=== PATIENT | female | born 1965 | race Caucasian/White ===

== ENCOUNTER → 2020-03-18 17:55 | Outpatient (BNVA) | payer OTHER, SELFPAY | PROVIDERS: Family Provider Nurse Practitioner; PCP Family Medicine; Visit Provider Emergency Medicine | DX: S80.01XA Contusion of right knee, initial encounter (principal); X58.XXXA Exposure to other specified factors, initial encounter | CPT/HCPCS: 73560 ==

== ENCOUNTER 2020-04-02 13:38 | Outpatient (CLI) | payer OTHER, SELFPAY ==
--- NOTE | 2020-04-02 14:15 | MR_ITS ---
WS: [id number] MRI RIGHT KNEE HISTORY: M25.461 Effusion, right knee COMPARISON: 03/18/2020 Anterior cruciate ligament: Intact. Posterior cruciate ligament: Intact. Medial collateral ligament: Intact. Posterior lateral corner structures: Intact. Medial menisci: Intact. Normal signal, size and shape. Lateral meniscus: Intact. Normal signal, size and shape. Extensor mechanism: Distal quadriceps tendon is intact. Increased signal in the proximal and distal p atellar tendons. Fluid and soft tissue: Large suprapatellar joint effusion. There is a large amount of soft tissue rubén ma surrounding the knee. No Dowd's cyst. Osseous and articular structures: Patellofemoral compartment: Loss of cartilage along the lateral patellar facet extending over a width of 6 mm Patellofemoral compartment: There is a small amount of marrow edema in the underlying patella. Medial compartment: Very minimal fissuring of the cartilage. Lateral compartment: Minimal fissuring of the cartilage. Proximal tibia: There is a large amount of edema in the proximal tibia. There is a complex fracture l ine predominantly within the lateral proximal tibia with extension anteriorly and posteriorly. Fractu re extends to the tibial tubercle but there is a complex fracture line that extends to the midline wi th involvement of the metaphysis and superiorly to the lateral tibial plateau. Fracture extends to th e base of the lateral tibial spine. There is no depression. Fracture extends approximately 5 cm into the proximal tibia. The entire fracture line is not evident. MR/MR knee RT wo con* [id number] IMPRESSION: 1. Complex, intra-articular, nondisplaced fracture involving the proximal tibi a. Fracture extends over a length of at least 5 cm with involvement of the late ral tibial plateau. No tibial plateau depression. 2. Large joint effusion and soft tissue edema. 3. Mild chondromalacia lateral patellar facet.
== END 2020-04-02 13:39 | disposition home or self-care (01) ==
LOC: RADSHAW 13:41
PROVIDERS: PCP Family Medicine; Visit Provider Orthopaedic Surgery
DX: M25.461 Effusion, right knee (principal); S82.101A Unspecified fracture of upper end of right tibia, initial encounter for closed fracture; X58.XXXA Exposure to other specified factors, initial encounter; R60.9 Edema, unspecified; M22.41 Chondromalacia patellae, right knee
CPT/HCPCS: 73721

== ENCOUNTER → 2020-04-24 09:53 | Outpatient (BNVA) | payer OTHER, SELFPAY | PROVIDERS: PCP Family Medicine; Visit Provider Orthopaedic Surgery | DX: S82.141D Displaced bicondylar fracture of right tibia, subsequent encounter for closed fracture with routine healing (principal); W18.09XD Striking against other object with subsequent fall, subsequent encounter | CPT/HCPCS: 73562 ==

== ENCOUNTER → 2020-05-15 10:24 | Outpatient (BNVA) | payer OTHER, SELFPAY | PROVIDERS: PCP Family Medicine; Visit Provider Orthopaedic Surgery | DX: S82.141A Displaced bicondylar fracture of right tibia, initial encounter for closed fracture (principal); X58.XXXA Exposure to other specified factors, initial encounter | CPT/HCPCS: 73562 ==

== ENCOUNTER 2020-06-19 10:25 | Outpatient (RCR) | payer OTHER, SELFPAY | END 2020-07-11 23:59 | disposition home or self-care (01) | LOC: SPT 10:25 | PROVIDERS: PCP Family Medicine; Referring Provider Orthopaedic Surgery; Visit Provider Orthopaedic Surgery | DX: S82.141D Displaced bicondylar fracture of right tibia, subsequent encounter for closed fracture with routine healing (principal); X58.XXXD Exposure to other specified factors, subsequent encounter | CPT/HCPCS: 97110; 97112; 97161 ==

== ENCOUNTER 2021-02-26 12:05 | Outpatient (CLI) | payer OTHER, SELFPAY ==
--- NOTE | 2021-02-26 12:56 | MM_ITS ---
WS: [id number] BILATERAL SCREENING DIGITAL MAMMOGRAM WITH CAD HISTORY: SCREENING COMPARISON: 05/02/2019 and 12/12/2015 Bilateral CC and MLO views submitted. Computer aided detection analyzed. Breast composition: There are scattered areas of fibroglandular density. No suspicious masses, microc alcifications or architectural distortion. Benign scattered calcifications and breast arterial calcif ications. MM/[place] [id number] IMPRESSION: BI-RADS: 2-Benign FOLLOW UP: 1 Year Follow-up
== END 2021-02-26 12:06 | disposition home or self-care (01) ==
LOC: RADSHAW 12:08
PROVIDERS: PCP Nurse Practitioner; Visit Provider Nurse Practitioner
DX: Z12.31 Encounter for screening mammogram for malignant neoplasm of breast (principal)
CPT/HCPCS: 77067

== ENCOUNTER 2022-04-09 15:45 | Outpatient (CLI) | payer OTHER, SELFPAY ==
--- NOTE | 2022-04-09 15:51 | MM_ITS ---
WS: [id number] BILATERAL SCREENING DIGITAL BREAST TOMOSYNTHESIS MAMMOGRAM WITH CAD HISTORY: SCREENING COMPARISON: 02/26/2021, 05/02/2019 and 12/12/2015 Bilateral CC and MLO views with tomosynthesis and synthetic mammography submitted. Computer aided det ection analyzed. Breast composition: There are scattered areas of fibroglandular density. No suspicious masses, microc alcifications or architectural distortion. Scattered calcifications and asymmetries are stable. No ne w findings. MM/[place] [id number] IMPRESSION: BI-RADS: 2-Benign FOLLOW UP: 1 Year Follow-up
== END 2022-04-09 15:46 | disposition home or self-care (01) ==
PROVIDERS: Visit Provider Nurse Practitioner Family
DX: Z12.31 Encounter for screening mammogram for malignant neoplasm of breast (principal)
CPT/HCPCS: 77063; 77067

== ENCOUNTER 2022-05-30 10:18 | Emergency (ER) | payer OTHER, SELFPAY ==
[2022-05-30 11:00] VITALS: BP 130/76; PULSE 85; RESP 16; TEMP 37; O2SAT 95; BMI 26.2
--- NOTE | 2022-05-30 14:08 | PC.NURSE ---
Called from waiting room with no answer
--- NOTE | 2022-05-30 14:24 | PC.NURSE ---
Called from waiting room with no answer
== END 2022-05-30 14:25 | disposition left against medical advice (07) ==
PROVIDERS: Emergency Provider Family Medicine
DX: Z53.21 Procedure and treatment not carried out due to patient leaving prior to being seen by health care provider (principal)
CPT/HCPCS: 73030

== ENCOUNTER 2022-05-31 17:36 | Emergency (ER) | payer OTHER, SELFPAY ==
[2022-05-31 18:22] VITALS: BP 145/76; PULSE 108; RESP 14; TEMP 36.7; O2SAT 96; BMI 31.8
--- NOTE | 2022-05-31 18:31 | XRR_ITS ---
PROCEDURE INFORMATION: Exam: XR Left Shoulder Exam date and time: 05/31/2022 7:22 PM Age: 57 years old Clinical indication: Pain; Shoulder; Left; Additional info: Shoulder pain TECHNIQUE: Imaging protocol: Radiologic exam of the Left shoulder. Views: 2 or more views. COMPARISON: CR XR shoulder LT min 2V* [id number] 05/30/2022 11:36 AM FINDINGS: Bones/joints: 1.8 cm well demarcated sclerotic lesion at the humeral head/neck interface. No periosteal reaction/bone formation or other aggressive features. Negative for fracture. Soft tissues: Normal. XR/XR shoulder LT min 2V* [id number] IMPRESSION: No acute findings. 1.8 cm sclerotic lesion at the proximal humerus with imaging characteristics most consistent with an enchondroma.
[2022-05-31 18:39] VITALS: BP 145/76; PULSE 108; RESP 14; TEMP 36.7; O2SAT 96
--- NOTE | 2022-05-31 18:51 | W.ED.EXTPRO ---
HPI - Extremity Problem General: Chief complaint: Extremity Injury, Upper Stated complaint: Left shoulder pain Time Seen by Provider: 05/31/22 18:31 History of Present Illness: Patient is a 57-year-old female comes to the ED with left shoulder pain. Symptoms started approximately 3 weeks ago. She denies any injury or trauma to cause pain. She has been to the walk-in clinic at [place] approximately 12 days ago for same complaint and states that they gave her a steroid shot in her left arm and it did not help. She rates her pain currently a 9 out of 10. She describes as a deep aching pain in her left shoulder that radiates up into her neck. Associated symptoms: Deny chest pain, fever(s) or rash Review of Systems Const: Denies: fever(s), chills or fatigue Eyes: Denies: change in vision or eye discomfort ENMT: Denies: throat pain, odynophagia, nasal discharge or nasal congestion Card: Denies: chest pain, palpitations, edema, swelling of feet/ankles, dyspnea on exertion or orthopnea Resp: Denies: dyspnea, productive cough or non-productive cough GI: Denies: abdominal pain, nausea, vomiting, diarrhea, constipation or hematochezia : Denies: flank pain, dysuria or hematuria Musc: Reports: extremity pain (Left shoulder pain); Denies: neck pain, back pain or extremity swelling Skin/Breast: Denies: rash or new lesions Neuro: Denies: headache(s), numbness in extremities or weakness in extremities PFS ED PFSH: Medical History Contusion of knee, right HTN (hypertension) Seasonal allergies Type 2 diabetes mellitus Surgical History S/P appendectomy S/P cholecystectomy Family History Other CAD (coronary artery disease) Diabetes Social History Smoking and tobacco status: never smoked Second hand smoke exposure: No Alcohol intake: never Desire information about alcohol rehabilitation?: No Desire information about substance/drug rehabilitation?: No History of recent travel: No Current gender identity: Female Physical Exam Const: COMMON NORMALS: no acute distress, patient oriented x3 and alert GENERAL APPEARANCE: cooperative HENMT: COMMON NORMALS: normocephalic HEAD & SCALP: normocephalic MOUTH: Normal oral and palatal mucosa present THROAT: posterior oropharynx normal and uvula midline Neck/C-Spine: COMMON NORMALS: supple GENERAL: Yes normal visual inspection Resp: COMMON NORMALS: normal respiratory effort, No retractions, No use of accessory muscles and clear to auscultation bilaterally AUSCULTATION: clear to auscultation bilaterally Cardio: COMMON NORMALS: regular rate, regular rhythm, S1 normal heart sound present, S2 normal heart sound present, No gallops present (Cardio), No clicks present (Cardio), No murmurs present (Cardio) and Peripheral pulses 2+ throughout RATE: regular rate RHYTHM: regular rhythm HEART SOUNDS: S1 normal heart sound present and S2 normal heart sound present PERIPHERAL PULSES: Peripheral pulses 2+ throughout GI: COMMON NORMALS: Normal to inspection, nondistended, normoactive bowel sounds present, Soft to palpation, non-tender and no masses PALPATION: Yes Soft to palpation : COMMON NORMALS: Yes no CVA tenderness BLADDER/KIDNEY EXAM: Yes no CVA tenderness Back/Pelvis: COMMON NORMALS: no CVA tenderness Extremity: COMMON NORMALS: normal to inspection and full ROM Neuro: COMMON NORMALS: patient oriented x3 SENSORIUM/ORIENTATION: Yes alert GAIT: Yes Normal gait present Skin: GENERAL SKIN EXAM: dry skin Course Vital Signs: Vital signs: Vital Signs Temperature 98.0 F 05/31/22 18:39 Pulse Rate 108 H 05/31/22 18:39 Respiratory Rate 14 05/31/22 18:39 Blood Pressure 145/76 05/31/22 18:39 Pulse Oximetry 96 05/31/22 18:39 Oxygen Delivery Me thod 05/31/22 18:39 MDM - Extremity (Nontraumatic) Medical Decision Making Patient is a 57-year-old female comes to the ED with left shoulder pain. Symptoms started approximately 3 weeks ago. She denies any injury or trauma to cause pain. X-ray of left shoulder showed a 1.8 cm sclerotic lesion at the proximal humerus which is consistent with an enchondroma. Patient was stable for discharge home and diagnosed with left shoulder pain. I placed order with case management for patient be referred to Ortho for follow-up. She was discharged home with a prescription for hydrocodone with pain. Return to ED precautions given. Patient understood agree with plan. Lab Data Radiology Impressions Shoulder X-Ray 05/31/22 18:31 IMPRESSION: No acute findings. 1.8 cm sclerotic lesion at the proximal humerus with imaging characteristics most consistent with an enchondroma. Discharge Plan Discharge Patient Disposition: Home Clinical Impression: Pain in left shoulder Qualifiers: Chronicity: acute Qualified Code(s): M25.512 - Pain in left shoulder Condition: Stable Prescriptions: No Action Chlipzlecrt-Xzotfwexazh-HE II [id number] mg tablet 2 tab PO DAILY Januvia 50 mg tablet 50 mg PO DAILY lisinopril 5 mg tablet 5 mg PO DAILY metformin 500 mg tablet 875 mg PO BID meclizine 25 mg tablet 25 mg PO BID PRN (Reason: dizziness) Qty: 30 0RF Farxiga 5 mg tablet 5 mg PO DAILY prednisone 20 mg tablet 60 mg PO DAILY 5 Days Qty: 15 0RF ibuprofen 600 mg tablet 600 mg PO Q8H PRN (Reason: pain) Qty: 30 0RF baclofen 5 mg tablet 5 mg PO TID PRN (Reason: muscle pain) Qty: 20 0RF Discharge Orders: Discharge ED (Routine); Ordered 05/31/22 Ordered By: Sourav Cornelius Referrals: Bernarda Temple FNP [Primary Care Provider] - Discharge Diet: Regular Discharge Activity: Increase activity as tolerated Activity Restrictions/Additional Instructions: Follow-up with medical provider as directed. Case management should be contacted in the next several days set up an appointment with Ortho for follow-up. Take medications as prescribed. Return to the ER or your medical provider if condition worsens. Please read and understand discharge instructions. Thank you for choosing [facility] for your healthcare needs today. Please realize this is an emergency room and that we are providing you with a medical screening exam and this may not be complete and all inclusive of all the testing and or work up that you may need to determine your ailment or severity of your illness. It is very important that you follow up as instructed or that you return to the Emergency Department should you have concerns or if your condition changes or worsens in any way. Coding Level of Care Code ED Home Energy Consultant for Radha Thakur Exam Comprehensive
[2022-05-31] MEDS: morphine 4 mg/mL SDV 1 mL IM (19:00)
[2022-05-31] MEDS: HYDROcodone-acetaminophen 7.5-325 mg Tablet 2 TAB PO (19:49)
--- NOTE | 2022-06-03 10:24 | DCPLANNER ---
Addendum entered by Debbi Doss 06/27/22 08:48: Patient had a follow up appointment scheduled with ortho - patient did attend appointment Addendum entered by Debbi Doss 06/06/22 14:12: Patient has a follow up appointment scheduled for Thursday, June 11, 2022 at 9:[address] Plummer at ortho. Clinic will call patient with appointment information. Original Note: state manager had message to schedule a follow up appointment for patient with ortho. state manager sent patients information to the front office staff at ortho. Patients information will be printed and reviewed. Clinic will call patient with appointment information.
== END 2022-05-31 19:51 | disposition home or self-care (01) ==
PROVIDERS: Emergency Provider Physician Assistant; PCP Nurse Practitioner Family
DX: M25.512 Pain in left shoulder (principal); Z79.84 Long term (current) use of oral hypoglycemic drugs; I10 Essential (primary) hypertension; E11.9 Type 2 diabetes mellitus without complications
CPT/HCPCS: 73030; 96372; 99284; J2270

== ENCOUNTER 2022-06-25 07:37 | Outpatient (CLI) | payer OTHER, SELFPAY ==
--- NOTE | 2022-06-25 12:58 | XR_ITS ---
WS: [id number] XR cervical spine 4-5V [id number] REASON FOR EXAM: CERVICALGIA FINDINGS: Straightening of the normal lordosis of the cervical spine. Normal odontoid. No focal cervical vertebral body abnormality. Moderate narrowing of the disc space C4-C5, C6-C7, and C7-T1. Moderate to large anterior osteophytes are seen from C4 to T1. Moderate uncinate osteophytes C4-T1. Moderate bilateral neural foraminal bony encroachment C4-T1. No significant listhesis. XR/XR cervical spine 4-5V [id number] IMPRESSION: Multilevel degenerative spondylosis as above.
== END 2022-06-25 07:38 | disposition home or self-care (01) ==
PROVIDERS: PCP Nurse Practitioner Family; Visit Provider Nurse Practitioner Family
DX: M47.812 Spondylosis without myelopathy or radiculopathy, cervical region (principal)
CPT/HCPCS: 72050

== ENCOUNTER 2023-04-23 13:37 | Outpatient (CLI) | payer OTHER, SELFPAY ==
--- NOTE | 2023-04-23 13:49 | MM_ITS ---
WS: [id number] Bilateral screening 3D tomosynthesis digital mammogram, 04/23/2023 Clinical Data: SCREENING Comparison: 04/09/2022, 02/26/2021, 05/02/2019, 12/12/2015, 11/24/2013, 09/13/2012, 02/13/2011, 08/24/2007. Findings: The breast parenchymal pattern shows fibroglandular tissue. No spiculated masses or clustered calcifi cations are seen. There are no secondary signs of carcinoma. Scattered ductal and vascular calcificat ions are present. MM/[place] [id number] Impression: 1. Negative bilateral mammogram unchanged. 2. Recommend annual screening mammograms. BIRADS: 1-Negative FOLLOW UP: 1 Year Follow-up The CAD plan checker was used.
== END 2023-04-23 13:38 | disposition home or self-care (01) ==
LOC: MOBLMAM 13:40
PROVIDERS: PCP Nurse Practitioner Family; Visit Provider Nurse Practitioner Family
DX: Z12.31 Encounter for screening mammogram for malignant neoplasm of breast (principal)
CPT/HCPCS: 77063; 77067

== ENCOUNTER → 2024-06-28 07:29 | Outpatient (BNVA) | payer OTHER, SELFPAY | PROVIDERS: PCP Nurse Practitioner Family; Visit Provider Orthopaedic Surgery | DX: M54.50 Low back pain, unspecified (principal); G89.29 Other chronic pain | CPT/HCPCS: 72110 ==

== ENCOUNTER 2024-11-08 20:14 | Inpatient (IN) | payer OTHER, SELFPAY ==
[2024-11-08] VITALS (7 sets, daily range): BP systolic 136–176; BP diastolic 70–95; PULSE 86–109; RESP 14–21; TEMP 36.8; O2SAT 97–100
--- NOTE | 2024-11-08 20:17 | ECG_ITS ---
[facility] [employer] [address] Test Date: 2024-11-08 Pat Name: Maia Rhodes Department: Room: Gender: Female Avionic Technician: : 1965 Requested By: Robert Vega Order Number: [id number] Sandy MD: Vicente Cortez M.D. Measurements Intervals [place] Rate: 113 P: 64 VT: 116 QRS: 32 QRSD: 91 T: 44 QT: 333 QTc: 457 Interpretive Statements SINUS TACHYCARDIA WITH SHORT VT INTERVAL LOW QRS VOLTAGE IN PRECORDIAL LEADS [QRS DEFLECTION < 1.0 mV IN CHEST LEADS] POSSIBLE ANTERIOR MYOCARDIAL INFARCTION , PROBABLY OLD [30 ms Q WAVE IN V3/V4, OR R < 0.2 mV IN V4] No previous ECG available for comparison Electronically Signed On 11-10-2024 11:17:25 BATCH ROOM TECHNICIAN by Vicente Cortez M.D. [email or web address]
--- NOTE | 2024-11-08 20:28 | XRR_ITS ---
PROCEDURE INFORMATION: Exam: XR Chest Exam date and time: 11/08/2024 8:34 PM Age: 59 years old Clinical indication: Pain; Chest pressure; Additional info: Cp TECHNIQUE: Imaging protocol: Radiologic exam of the chest. Views: 1 view. COMPARISON: CR XR cervical spine 4-5V [id number] 06/25/2022 1:03 PM FINDINGS: Lungs: No focal consolidation or other acute appearing pulmonary opacity. Pleural spaces: No pleural effusion or pneumothorax noted. Heart/Mediastinum: There is no cardiomegaly. Bones/joints: No acute osseous abnormality. XR/XR chest 1V portable [id number] IMPRESSION: No acute findings.
--- NOTE | 2024-11-08 21:02 | W.ED.CHESTPA ---
HPI - Chest Pain General: Chief Complaint: Chest Pain Stated Complaint: Chest Pain\Chest Pressure Time Seen by Provider: 11/08/24 20:57 History of Present Illness: Patient presents to the ER with intermittent pain between her shoulder blades that radiates to anterior to her chest to her bilateral arms up into her neck and ends up giving her headache. Patient says her blood pressure has been up and down normally is very well-controlled it has been all the way up to 186/103 this is when her headache is the worst. Patient has not missed any medicine or had any medicine changes. Patient denies any history of coronary artery disease or heart problems. Patient is a diabetic. Patient states this been going on for 3 to 4 days off and on and was better today at work but when she went home and started getting worse so then she got concerned and wanted to be coming to be checked out. Related Data Home Medications Medication Instructions Recorded Confirmed lisinopril 5 mg tablet 5 mg PO DAILY 02/12/20 09/27/24 sitagliptin phosphate 50 mg tablet 50 mg PO DAILY 02/12/20 09/27/24 (Januvia) dapagliflozin propanediol 5 mg 5 mg PO DAILY 11/05/20 09/27/24 tablet (Farxiga) metformin 1,000 mg tablet 1,000 mg PO BID 09/27/24 09/27/24 Previous Rx's Medication Instructions Recorded ibuprofen 600 mg tablet 600 mg PO Q8H PRN pain #30 tabs 05/19/22 fluticasone propionate 50 1 spray intranasal DAILY PRN 10/15/22 mcg/actuation nasal allergy symptoms #16 grams spray,suspension tizanidine 2 mg tablet 2 mg PO BID PRN muscle spasticity 10/11/23 #20 tabs cephalexin 500 mg capsule 500 mg PO TID 7 days #21 caps 09/27/24 Allergies Allergy/AdvReac Type Severity Reaction Status Date / Time No Known Allergies Allergy Verified 11/08/24 20:25 Review of Systems General: Reports: 10 or more systems reviewed and unremarkable except in HPI and below PFSH ED PFSH: Medical History Type 2 diabetes mellitus Seasonal allergies HTN (hypertension) Contusion of knee, right Surgical History S/P cholecystectomy S/P appendectomy Family History Other CAD (coronary artery disease) Diabetes Social History Smoking and tobacco/nicotine status: tobacco/nicotine user, details unknown Second hand smoke exposure: No Alcohol intake: never Substance/Drug Use: never Current gender identity: Female Physical Exam Const: COMMON NORMALS: no acute distress, average body habitus, patient oriented x3, no limitations, healthy appearing, alert and well nourished HENMT: COMMON NORMALS: normocephalic, atraumatic, hearing grossly normal bilaterally, external ears normal, Normal external nose present and moist oral mucous membranes HEAD & SCALP: normocephalic and atraumatic NOSE: Normal external nose present EXTERNAL EAR: Yes external ears normal Neck/C-Spine: COMMON NORMALS: no JVD Chest: COMMONS NORMALS: normal inspection of the chest and normal palpation of entire chest wall Resp: COMMON NORMALS: normal respiratory effort, No retractions, No use of accessory muscles and clear to auscultation bilaterally AUSCULTATION: clear to auscultation bilaterally Cardio: COMMON NORMALS: no JVD, regular rate, regular rhythm, S1 normal heart sound present, S2 normal heart sound present, No gallops present (Cardio), No clicks present (Cardio), No murmurs present (Cardio) and No rub (Cardio) RATE: regular rate RHYTHM: regular rhythm HEART SOUNDS: S1 normal heart sound present and S2 normal heart sound present GI: COMMON NORMALS: Normal to inspection, nondistended, normoactive bowel sounds present, Soft to palpation, non-tender, No hepatosplenomegaly present and no masses PALPATION: Yes Soft to palpation and Yes No hepatosplenomegaly present Neuro: COMMON NORMALS: patient oriented x3 SENSORIUM/ORIENTATION: Yes alert Course Vital Signs: Vital signs: Vital Signs Temperature 98.2 F 11/08/24 20:21 Pulse Rate 86 11/08/24 22:30 Respiratory Rate 16 11/08/24 22:30 Blood Pressure 136/70 11/08/24 22:30 Pulse Oximetry 98 11/08/24 22:30 Oxygen Delivery Me thod Room Air 11/08/24 22:00 MDM - Chest Pain Medical Decision Making Lab work revealed an elevated delta troponin. First troponin was 16, second troponin was 84 with a delta of approximately 64, EKG did show some changes with some inverted T waves in V1 V2. Patient said her pain was fully improved but still there little bit. Patient said her headache is gone. We discussed these results with the patient. We discussed these results with Dr. Stacy. We placed patient in observation for elevated troponin we will start patient on Lovenox, Medical Records I reviewed the patient's medical records. Lab Data I reviewed the patient's lab results. 11/08/24 21:09 11/08/24 21:09 Radiology Impressions Chest X-Ray 11/08/24 20: IMPRESSION: No acute findings. Laboratory Results WBC 12.11 10^3/uL (3.29-11.43) H 11/08/24 21:09 RBC 4.72 10^6/uL (3.85-5.65) 11/08/24 21:09 Hgb 14.40 g/dL (11.27-16.99) 11/08/24 21:09 Hct 41.9 % (36-47) 11/08/24 21:09 MCV 88.8 fl (85-98) 11/08/24 21:09 MCH 30.5 pg (27-33) 11/08/24 21: MCHC 34.4 g/dL (30-55) 11/08/24 21:09 RDW 12.0 % (12.1-15.1) L 11/08/24 21:09 Plt Count 354 10^3/cmm (157-399) 11/08/24 21:09 MPV 8.6 fL (7.4-10.4) 11/08/24 21:09 Neut % (Auto) 56.9 % 11/08/24 21:09 Lymph % (Auto) 30.2 % 11/08/24 21:09 [place] % (Auto) 7.4 % 11/08/24 21:09 Eos % (Auto) 4.5 % 11/08/24 21:09 Baso % (Auto) 0.8 % 11/08/24 21:09 Neut # (Auto) 6.88 10^3/uL (1.8-7.7) 11/08/24 21:09 Lymph # (Auto) 3.7 10^3/uL (0.8-4.8) 11/08/24 21:09 [place] # (Auto) 0.9 10^3/uL (0.2-0.9) 11/08/24 21:09 Eos # (Auto) 0.5 10^3/uL (0.0-0.8) 11/08/24 21:09 Baso # (Auto) 0.1 10^3/uL (0.0-0.1) 11/08/24 21:09 Nucleated RBC % (auto) 0 % 11/08/24 21:09 Nucleated RBCs # 0.0 /100WBC 11/08/24 21:09 Sodium 135 mmol/L (136-145) L 11/08/24 21:09 Potassium 4.3 mmol/L (3.5-5.1) 11/08/24 21:09 Chloride 98 mmol/L (98-107) 11/08/24 21:09 Carbon Dioxide 23 mmol/L (22-29) 11/08/24 21:09 Anion Gap 18.3 (5-19) 11/08/24 21:09 BUN 9 mg/dL (8-23) 11/08/24 21:09 Creatinine 0.5 mg/dL (0.5-0.9) 11/08/24 21:09 GFR Calculation 125.4 mL/min (90-130) 11/08/24 21:09 Glucose 332 mg/dL (65-115) H 11/08/24 21:09 Calculated Osmolality 292 mOsm/kg (285-295) 11/08/24 21:09 Calcium 9.4 mg/dL (8.5-10.5) 11/08/24 21:09 Total Bilirubin 0.4 mg/dL (0.15-1.2) 11/08/24 21:09 AST 20 U/L (0-32) 11/08/24 21:09 ALT 22 U/L (0-33) 11/08/24 21:09 Alkaline Phosphatase 134 U/L (35-105) H 11/08/24 21:09 Troponin T Baseline 16 ng/L (0-10) H 11/08/24 21:09 Troponin T 120 Minute 80.51 ng/L (0-10) H 11/08/24 22:50 Delta Troponin T 64.51 ABS# (0-10) H* 11/08/24 22:50 Total Protein 7.1 g/dL (6.6-8.7) 11/08/24 21:09 Albumin 4.3 g/dL (3.5-5.2) 11/08/24 21:09 Globulin 2.8 g/dL (1.3-4.6) 11/08/24 21:09 Lipase 40 U/L (13-60) 11/08/24 21:09 All radiology interpretation(s) finalized by discharge Discharge Plan Discharge Patient Disposition: Placed in Observation Clinical Impression: Non-ST elevation KS (NSTEMI) Coding Level of Care Code ED Building Cleaner for Radha Thakur
[2024-11-08 21:23] LABS: Basophils # 0.1 10^3/uL (0.0-0.1); Basophils % 0.8 %; Eosinophils # 0.5 10^3/uL (0.0-0.8); Eosinophils % 4.5 %; Hematocrit 41.9 % (36-47); Lymphocytes # 3.7 10^3/uL (0.8-4.8); Lymphocytes % 30.2 %; Mean Corpuscular HGB Conc 34.4 g/dL (30-55); Mean Corpuscular Hemoglobin 30.5 pg (27-33); Mean Corpuscular Volume 88.8 fl (85-98); Mean Platelet Volume 8.6 fL (7.4-10.4); Monocytes # 0.9 10^3/uL (0.2-0.9); Monocytes % 7.4 %; Neutrophils # 6.88 10^3/uL (1.8-7.7); Neutrophils % 56.9 %; Nucleated Red Blood Cells % 0 %; Platelet Count 354 10^3/cmm (157-399); Red Blood Count 4.72 10^6/uL (3.85-5.65); White Blood Count 12.11 10^3/uL (3.29-11.43)
[2024-11-08 21:38] LABS: Alanine Aminotransferase 22 U/L (0-33); Albumin Level 4.3 g/dL (3.5-5.2); Alkaline Phosphatase 134 U/L (35-105); Anion Gap 18.3 (5-19); Aspartate Amino Transferase 20 U/L (0-32); Blood Urea Nitrogen 9 mg/dL (8-23); Calcium 9.4 mg/dL (8.5-10.5); Carbon Dioxide 23 mmol/L (22-29); Chloride 98 mmol/L (98-107); Globulin 2.8 g/dL (1.3-4.6); Glomerular Filtration Rate 125.4 mL/min (90-130); Glucose 332 mg/dL (65-115); Lipase 40 U/L (13-60); Osmolality Calculated 292 mOsm/kg (285-295); Potassium 4.3 mmol/L (3.5-5.1); Sodium 135 mmol/L (136-145); Total Bilirubin 0.4 mg/dL (0.15-1.2); Total Protein 7.1 g/dL (6.6-8.7)
[2024-11-08 21:39] LABS: Troponin(5th) Baseline 16 ng/L (0-10)
--- NOTE | 2024-11-08 22:28 | ECG_ITS ---
[facility]: [facility] Pat Name: Maia Rhodes Department: Room: Gender: Female Hand Candle Dipper: : 1965 Requested By: Linda Yost Order Number: [id number] Vika MD: Vicente Cortez M.D. Measurements Intervals [place] Rate: 87 P: 45 MI: 138 QRS: -1 QRSD: 93 T: 78 QT: 366 QTc: 441 Interpretive Statements SINUS RHYTHM POSSIBLE ANTERIOR MYOCARDIAL INFARCTION , OF INDETERMINATE AGE [30 ms Q WAVE IN V3/V4, OR R < 0.2 mV IN V4] Compared to ECG 11/08/2024 20:17:31 Sinus tachycardia no longer present Short MI interval no longer present Myocardial infarct finding still present Electronically Signed On 11-12-2024 13:44:56 GENERAL HARDWARE SALESPERSON by Vicente Cortez M.D. [email or web address]
[2024-11-08 23:11] LABS: Troponin 5 2HR 80.51 ng/L (0-10)
[2024-11-08 23:23] LABS: Troponin 5 2HR Delta 64.51 ABS# (0-10)
[2024-11-08] MEDS: aspirin 81 mg Chew Tablet 324 MG PO (23:42)
--- NOTE | 2024-11-08 23:51 | P.HP_ITS ---
Providers/Chief Complaint 2 Primary Care Provider: Bernarda Temple, SHADIA Chief Complaint: Chest Pain\Chest Pressure History of Present Illness Maia Rhodes is a 59 year old female with history of diabetes, hypertension, takes lisinopril presented to the hospital with intermittent headache, chest discomfort and facial flushing. Patient is stating that since last Thursday he has been feeling under the weather, has been noticing fluctuation of blood pressure highest 182/103mmhg, she maintained a blood pressure log, she kept taking lisinopril fall milligrams daily. She does not smoke or drink alcohol. 11/08 she started experiencing chest discomfort with high blood pressure and headache after her supper this time she decided to come to the hospital for further evaluation. In the ER her second hour troponin went up significantly, EKG showing T wave inversion V1 V2 which were not present on baseline at the time of my evaluation she is not complaining active chest pain or shortness of breath she is reading a book. She has been started on ACS protocol for non-STEMI. Patient is stating that her chest discomfort started around 6 PM and lasted for about 4 hours, it was rating towards her back and between her shoulder blades, she did not experience any nausea or vomiting but experienced facial flushing. Patient is endorsing history of [place] in her mother in 60s. Patient has received therapeutic loading dose of aspirin. 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, has been active, not endorsing sedentary lifestyle Review of Systems 2 Const: Denies: fever(s) Eyes: Denies: change in vision ENMT: Denies: throat pain Card: Reports: chest pain Resp: Denies: dyspnea GI: Denies: abdominal pain Medications/Allergies Home Medications Medication Instructions Recorded Confirmed Last Taken Type lisinopril 5 mg tablet 5 mg PO DAILY 02/12/20 09/27/24 Unknown History sitagliptin phosphate 50 mg tablet 50 mg PO DAILY 02/12/20 09/27/24 Unknown History (Jeremiah) dapagliflozin propanediol 5 mg 5 mg PO DAILY 11/05/20 09/27/24 Unknown History tablet (Farxiga) ibuprofen 600 mg tablet 600 mg PO Q8H PRN pain #30 tabs 05/19/22 09/27/24 Unknown Rx fluticasone propionate 50 1 spray intranasal DAILY PRN 10/15/22 09/27/24 Unknown Rx mcg/actuation nasal allergy symptoms #16 grams spray,suspension tizanidine 2 mg tablet 2 mg PO BID PRN muscle spasticity 10/11/23 09/27/24 Unknown Rx #20 tabs cephalexin 500 mg capsule 500 mg PO TID 7 days #21 caps 09/27/24 09/27/24 Unknown Rx metformin 1,000 mg tablet 1,000 mg PO BID 09/27/24 09/27/24 Unknown History Allergies Allergy/AdvReac Type Severity Reaction Status Date / Time No Known Allergies Allergy Verified 11/08/24 20:25 PFSH Acute 2 PFSH: Medical History (Updated 11/09/24 @ 01:05 by Fahad Stacy MD) Type 2 diabetes mellitus Seasonal allergies HTN (hypertension) Contusion of knee, right Surgical History S/P cholecystectomy S/P appendectomy Family History Other CAD (coronary artery disease) Diabetes Social History Smoking and tobacco/nicotine status: tobacco/nicotine user, details unknown Second hand smoke exposure: No Alcohol intake: never Substance/Drug Use: never Current gender identity: Female Vitals/I&O/Wt Last Vital Signs Temp 98.2 F 11/08/24 20:21 Pulse 86 11/08/24 22:30 Resp 16 11/08/24 22:30 BP 136/70 11/08/24 22:30 Pulse Ox 98 11/08/24 22:30 O2 Del Method Room Air 11/08/24 22:00 Weight last 48 hrs Weight 77.337 kg Weight 79.379 kg Physical Exam 2 Narrative: Pleasant and cooperative No active chest discomfort S1, S2 No murmur Abdomen soft Euvolemic Nonfocal neuroexam No active headache Nonfocal neuroexam no radio-radial delay Abdomen soft Pleasant and cooperative Data 11/08/24 21:09 11/08/24 21:09 A&P Assessment and plan (1) Non-ST elevation [place] (NSTEMI): (2) Hypertensive urgency: (3) Type 2 diabetes mellitus: Plan Non-STEMI Sarah's syndrome? Chest pain lasted for hours, hypertension, delta troponin, T wave inversion V1 V2 Family history positive for [place] Start patient on ACS protocol Loading dose of aspirin and Plavix requested start therapeutic Lovenox Added atorvastatin along Coreg and lisinopril Requested echo Will consult cardiology Hypertensive urgency: Added Coreg to lisinopril, increase the dose of lisinopril to 10 mg Need optimization of antihypertensive regimen Type II diabetic: Will add sliding scale check A1c level Chest pain radiating towards her back: No signs of radio-radial delay Follow-up with echo report Patient currently chest pain-free Consistent carb diet Full code Attestations 2 Medical Necessity Statement*: Likely will need more than 2 midnights for management of non-STEMI Diagnoses Non-ST elevation [place] (NSTEMI) I21.4 Hypertensive urgency I16.0 Type 2 diabetes mellitus E11.9
[2024-11-09] VITALS (60 sets, daily range): BP systolic 110–171; BP diastolic 56–93; PULSE 80–118; RESP 7–29; TEMP 36.6; O2SAT 95–100; BMI 29.2
[2024-11-09] MEDS: enoxaparin 80 mg/0.8 mL Syringe SUBCUT (00:02)
[2024-11-09 00:12] LABS: D Dimer 0.66 ug/mLFEU (0-0.59)
--- NOTE | 2024-11-09 00:50 | USCV_ITS ---
Maia Rhodes Age: 59 Gender: F : 1965 Exam Date: 11/09/2024 02:01 Ordering Phys: Fahad Stacy MD Technologist: NATANAEL [place] [facility] [place]ication: Non-STEMI, History of HTN, DM BP: 158 / 79 HR: 84 Rhythm: Sinus Technical Quality: Adequate MEASUREMENTS (Male / Female) Normal Values 2D ECHO LV Diastolic Diameter PLAX 3.4 cm 4.2 - 5.9 / 3.9 - 5.3 cm IVS Diastolic Thickness 1.3 cm 0.6 - 1.0 / 0.6 - 0.9 cm IVS Systolic Thickness 1.5 cm LVPW Diastolic Thickness 1.1 cm 0.6 - 1.0 / 0.6 - 0.9 cm LVPW Systolic Thickness 1.6 cm LVOT Diameter 1.9 cm LV Ejection Fraction 2D Teich 66.2 % LV Ejection Fraction MOD 4C 55.5 % LV Ejection Fraction MOD 2C 49.0 % LV Ejection Fraction 2C AL 48.1 % LA Diameter 2.6 cm Aorta at Sinotubular Diameter 2.6 cm IVC Diameter 1.0 cm M-MODE LA Ao Ratio MM 1.4 AV Cusp Separation MM 2.0 cm DOPPLER AV Peak Velocity 130.0 cm/s LVOT Peak Velocity 95.0 cm/s AV Area Cont Eq vti 2.6 cm squared AV Area Cont Eq pk 2.0 cm squared MV Peak Velocity 124.0 cm/s MV Area PHT 4.6 cm squared Mitral E to A Ratio 0.8 TV Peak E Velocity 44.0 cm/s PV Peak Velocity 88.0 cm/s FINDINGS Left Ventricle Normal left ventricular size, systolic function and wall thickness, with no regional wall motion abnormalities. Left ventricular ejection fraction is estimated at 60 %. Grade I/IV diastolic dysfunction (abnormal relaxation filling pattern), normal to mildly elevated filling pressures. Right Ventricle The right ventricle is normal in size and function. Right Atrium The right atrium is normal in size. Left Atrium The left atrium is normal in size. Mitral Valve Moderately thickened mitral valve. Moderate mitral annular calcification. No mitral valve stenosis. Trace mitral valve regurgitation. Aortic Valve Structurally normal aortic valve without significant sclerosis or stenosis. There is no aortic regurgitation. Tricuspid Valve Trace tricuspid valve regurgitation. Pulmonic Valve Structurally normal pulmonic valve without significant stenosis. There is no pulmonic regurgitation. Pericardium Normal pericardium without effusion. Aorta Normal ascending aorta dimension. IVC The inferior vena cava appears normal. CONCLUSIONS Normal left ventricular size, systolic function and wall thickness, with no regional wall motion abnormalities. Left ventricular ejection fraction is estimated at 60 %. Grade I/IV diastolic dysfunction (abnormal relaxation filling pattern), normal to mildly elevated filling pressures. No significant valve abnormalities. There is no pericardial effusion. Right atrial pressure is around 5 mm of mercury. Fahad De La Rosa MD (Electronically Signed) Final Date: 09 November 2024 17:23 S
[2024-11-09] MEDS: clopidogrel 300 mg Tablet PO (01:26)
[2024-11-09] MEDS: LORazepam 2 mg/mL INJ 1 mL 1 MG IVP ×2 (01:37→04:57)
[2024-11-09 01:45] LABS: Estmated Average Glucose 220; Hemoglobin A1C 9.3 % (4.0-6.0)
[2024-11-09 02:09] LABS: Bilirubin Urine Negative (Negative); Blood Urine Negative (Negative); Glucose Urine UA 3+ (Normal); Ketones Urine Negative (Negative); Leukocyte Esterase Urine Negative (Negative); Nitrate Urine Negative (Negative); Protein Urine Negative (Negative); Urine Appearance Clear (CLEAR); Urine Color Yellow (Yellow); Urobilinogen Urine 0.2 mg/dL (Negative); pH Urine 5.5 (5-7)
[2024-11-09 02:12] LABS: Add Urine Microscopic? YES; Bacteria Urine None Seen /hpf; Hyaline Casts Urine 0-4 /lpf; RBC Urine 0-2 /hpf (0-2); Squamous Epithelial Cell Urine 0-5 /hpf (0-5); WBC Urine 0-5 /hpf (0-5)
[2024-11-09 02:17] LABS: Specific Gravity, Urine 1.031 (1.005-1.030)
--- NOTE | 2024-11-09 03:00 | ECG_ITS ---
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 Measurements Intervals [place] Rate: 84 P: 42 MD: 139 QRS: -5 QRSD: 89 T: 73 QT: 366 QTc: 434 Interpretive Statements SINUS RHYTHM LOW QRS VOLTAGE IN PRECORDIAL LEADS [QRS DEFLECTION < 1.0 mV IN CHEST LEADS] POSSIBLE ANTERIOR MYOCARDIAL INFARCTION , PROBABLY OLD [30 ms Q WAVE IN V3/V4, OR R < 0.2 mV IN V4] Compared to ECG 11/08/2024 22:48:49 Low QRS voltage now present Myocardial infarct finding still present Electronically Signed On 11-12-2024 13:43:29 ADJUSTER AND INSPECTOR by Vicente Cortez M.D. [id number]
[2024-11-09 03:09] LABS: Basophils # 0.1 10^3/uL (0.0-0.1); Basophils % 0.6 %; Eosinophils # 0.4 10^3/uL (0.0-0.8); Eosinophils % 3.2 %; Hematocrit 37.7 % (36-47); Lymphocytes # 4.3 10^3/uL (0.8-4.8); Lymphocytes % 34.2 %; Mean Corpuscular Hemoglobin 31.2 pg (27-33); Mean Corpuscular Volume 89.1 fl (85-98); Mean Platelet Volume 8.5 fL (7.4-10.4); Monocytes # 0.8 10^3/uL (0.2-0.9); Monocytes % 6.4 %; Neutrophils # 6.99 10^3/uL (1.8-7.7); Neutrophils % 55.4 %; Nucleated Red Blood Cells % 0 %; Platelet Count 333 10^3/cmm (157-399); Red Blood Count 4.23 10^6/uL (3.85-5.65); Red Cell Distribution Width 12.2 % (12.1-15.1); White Blood Count 12.64 10^3/uL (3.29-11.43)
[2024-11-09 03:34] LABS: Anion Gap 17.2 (5-19); Blood Urea Nitrogen 9 mg/dL (8-23); Calcium 9.1 mg/dL (8.5-10.5); Carbon Dioxide 23 mmol/L (22-29); Chloride 99 mmol/L (98-107); Creatinine Clr Calc Pharmacy 148.6505; Glomerular Filtration Rate 162.3 mL/min (90-130); Glucose 211 mg/dL (65-115); Magnesium 1.9 mg/dL (1.7-2.3); Osmolality Calculated 285 mOsm/kg (285-295); Potassium 4.2 mmol/L (3.5-5.1); Sodium 135 mmol/L (136-145); Troponin 5 6HR 214.2 ng/L (0-10); Troponin 5 6HR Delta 198.2 ng/L (0-12)
--- NOTE | 2024-11-09 08:39 | XACV_ITS ---
Exam Room: [facility] Ht: 163 cm Wt: 77 kg BSA: 1.89 m2 Gender: Female : 1965 Any Known Allergies: No known allergies Exam Priority: Routine Procedure(s): Procedure Description: Diagnostic procedure Procedure Description: PCI procedure Procedure Description: Drug Eluting Coronary Stent Procedure Description: PTCA Procedure Description: Miscellaneous Procedure Description: ACT Procedure Description: Coronary Angiography Diagnostic Cath Status: Urgent Diagnostic Findings * Left Main is short vessel with no significant stenosis. * Right Coronary Artery is a small sized, non-dominant vessel that is subtotally occluded. * Mid Left Anterior Descending: critical 95-99% stenosis, EDWARD: 3 flow. * Distal Circumflex: significant 80% stenosis, EDWARD: 3 flow. * Coronary angiography shows left dominance. PCI Status: Urgent PCI Indication: NSTE - ACS Interventional Findings * Procedure detail: We engaged left main artery with XB 3.0 guide catheter. IV heparin was administered to maintain anticoagulation. Run-through wire was used to cross the critical mid LAD stenosis and was put in distal vessel. We predilated the stenosis with 2.25 x 12 mm semicompliant balloon. This was followed by placement of 2.25 x 18 mm resolute Jailene drug-eluting stent. We postdilated the stent with 2.5 x 12 mm NC balloon. At this time final angiogram showed excellent stent expansion and no residual stenosis in the LAD. We then turned our attention to distal circumflex artery. Run-through wire was used to cross the stenosis. We predilated the stenosis with 2.25 x 12 mm semicompliant balloon. This was followed by placement of 2.5 x 26 mm resolute Rowe drug-eluting stent. We postdilated the stent with 2.5 x 12 mm NC balloon. Final angiogram was performed with excellent results. Guide wire and guide catheter were removed. 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 . * Mid Left Anterior Descendin% stenosis treated with a AB TREK 2.25X12 RX BALLOON, MDT R JAILENE 2.25X18 PHILOMENA, and MDT NC EUPHORA RX [id number] BALLOON. 0% residual stenosis, EDWARD: 3 flow. * Distal Circumflex: 80% stenosis treated with a AB TREK 2.25X12 RX BALLOON, MDT R JAILENE 2.5X26 PHILOMENA, and MDT NC EUPHORA RX [id number] BALLOON. 0% residual stenosis, EDWARD: 3 flow. Conclusions 1. Critical mid LAD stenosis status post successful revascularization with 1 stent. Severe distal left circumflex artery stenosis status post successful revascularization with 1 stent.. 2. Mid Left Anterior Descending was treated with a Balloon, Drug Eluting Stent, and Balloon. 3. Distal Circumflex was treated with a Balloon, Drug Eluting Stent, and Balloon. Recommendations * Dual antiplatelet therapy with aspirin and plavix for atleast 1 year. * High intensity statin therapy. * Outpatient cardiology follow up in 2 weeks. Interventional RX Recommendation: PCI w/o planned CABG Diagnostic RX Recommendation: PCI w/o planned CABG Anticoagulation: Heparin Pressures Phase:Rest AO : 162 / 79 ( 108 ) @ 10:12:00 AM 106 / 74 ( 90 ) @ 10:27:00 AM 106 / 63 ( 83 ) @ 10:34:00 AM 106 / 62 ( 83 ) @ 10:37:00 AM 108 / 60 ( 82 ) @ 10:40:00 AM Clinical Evaluation EBL: 5mL-10mL Procedural Details Pre-Procedure Time Out. Identified patient by full name and date of as verbalized by the patient/guarantor. Does the consent match the physician's order: Yes. Accurate & Complete Informed Consent: Yes. Inpatient/Outpatient History & Physical on Chart: Yes. If H&P is completed, is and addenduem needed: No; If yes, is the addendum complete: N/A. Visualize and Verify Site with Patient/Guarantor: N/A. Relevant Radiology Images available: Yes. Pre-op teaching completed and patient verbalized understanding. The risks, benefits, and alternatives of sedation and/or procedure were discussed by physician. The patient agrees to continue. Procedure started. [facility] Clinical Fraility Score: 3: Managing Well. 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 Chest Pain Symptom Assessment: Typical Angina Symptoms. Correct patient, site and procedure confirmed by cath team. Current diagnosis: NSTEMI. PERRLA. Strong, equal hand weasand trimmer bilaterally. Lungs clear x 5 lobes. Physician arrived. Current Diagnosis : NSTEMI. IV Site on Arrival: 18 gauge in the left anticubital. IV Fluids: 0.9% NaCl at KVO. 0 mL infused prior to prestressed concrete laborer. Oxygen started at 2liters/min via nasal canula. right groin was prepped with chloroprep then draped in the usual sterile fashion. right radial was prepped with chloroprep then draped in the usual sterile fashion. Baseline sample Acquired. HR: 90 BPM. Physician scrubbed in. Immediate Pre-Procedure Time Out. Correct Patient: Yes; Correct Procedure: Yes; Correct Site: Yes; Correct Patient Position: Yes; Correct Supplies: Yes; Dried Flammable Prep: Yes; Blood Products Available: N/A;. Lidocaine 1% infiltrated to the right radial. Arterial access obtained. A 5 algerian TIG catheter in over wire. Multiple views taken of left coronary artery. Catheter redirected to the RCA. Multiple views taken of right coronary artery. Catheter removed over the exchange wire. 6 algerian XB 3 guide catheter was inserted over the wire. Runthrough guidewire was advanced through the guide catheter to lesion in the mid LAD. Inflation number : 1 A AB TREK 2.25X12 RX BALLOON was prepped and advanced across the Mid LAD , then inflated to 8 ANNE-MARIE for 0:15 seconds. Inflation number: 2 The AB TREK 2.25X12 RX BALLOON was reinflated across the Mid LAD, to 10 ANNE-MARIE for 0:20 seconds. Balloon out. Inflation Number : 3 Cem Mclean JAILENE 2.25X18 PHILOMENA -Lot Number# _[id number] EXP: 12/31/2026 was prepped and advanced across the Mid LAD. The stent was deployed at 12 ANNE-MARIE for 0:16 seconds. Stent balloon out over wire. Inflation number : 4 A MDT NC EUPHORA RX [id number] BALLOON was prepped and advanced across the Mid LAD , then inflated to 12 ANNE-MARIE for 0:13 seconds. Inflation number: 5 The MDT NC EUPHORA RX [id number] BALLOON was reinflated across the Mid LAD, to 12 ANNE-MARIE for 0:10 seconds. Balloon out. Results checked. Runthrough repositioned to distal Circ. Inflation number: 1 The AB TREK 2.25X12 RX BALLOON was reinflated across the Dist CX, to 8 ANNE-MARIE for 0:11 seconds. Inflation number: 2 The AB TREK 2.25X12 RX BALLOON was reinflated across the Dist CX, to 10 ANNE-MARIE for 0:10 seconds. Balloon out. Results checked. Inflation Number : 3 A MDT R JAILENE 2.5X26 PHILOMENA -Lot Number# _[id number] EXP:01/31/2027 was prepped and advanced across the Dist CX. The stent was deployed at 12 ANNE-MARIE for 0:16 seconds. Stent balloon out over wire. Results checked. Inflation number: 4 The MDT NC EUPHORA RX [id number] BALLOON was reinflated across the Dist CX, to 14 ANNE-MARIE for 0:15 seconds. Inflation number: 5 The MDT NC EUPHORA RX [id number] BALLOON was reinflated across the Dist CX, to 16 ANNE-MARIE for 0:11 seconds. Balloon out. Wire out. Results checked. ACT drawn. Results 266 seconds. Therapeutic limits - pre-heparin administration 90-150 seconds and monitoring heparin during a vascular procedure >250 seconds. Guide catheter out. A TR Band was successful obtaining hemostatsis at the Right Radial artery insertion site. Vital chart was stopped. Post Procedure: Pulses reassessed and unchanged. PERRLA. Strong, equal hand weasand trimmer bilaterally. No VTE prophylaxis required. Medication's Wasted: Lidocaine 1% = 18 mL. Medication's Wasted: Nitro = 49.8 mcg. Medication's Wasted: Other = Fentanyl 25 mcg. Total IV fluids: 100 mL. Post-op diagnosis: Stent to LAD and CX. Complications: None. Estimated blood loss: 5mL-10mL. Responsiveness - Normal response to verbal stimuli; alert and oriented, PERRLA. Airway - Unaffected, no intervention required; spontaneous ventilation. Circulation: W/N/L, pulses unchanged. Nausea/Vomiting: No. Procedure completed. Patient transferred by wheelchair to CPRU. Access Site Site: Right Radial artery Sheath Size: 6 Fr Hemostasis Method: TR Band Hemostasis Success: Successful Procedure Medications Start: 10:01 AM Stop: 10:01 AM Medication: Versed Amount: 1 mg Route: I.V. Start: 10:01 AM Stop: 10:01 AM Medication: Fentanyl Amount: 50 mcg Route: I.V. Start: 10:11 AM Stop: 10:11 AM Medication: Nitrogylcerin Amount: 200 mcg Route: I.A. Start: 10:13 AM Stop: 10:13 AM Medication: Heparin Amount: 5000 units Route: I.V. Start: 10:16 AM Stop: 10:16 AM Medication: Heparin Amount: 2000 units Route: I.V. Start: 10:19 AM Stop: 10:19 AM Medication: Versed 1 mg and Fentanyl 25 mcg Amount: 1 Route: I.V. Start: 10:47 AM Stop: 10:47 AM Medication: Plavix Amount: 300 mg I, the attending physician, have reviewed and verified all procedure medications. Yes, all medications given per verbal order History/Risk Factors Hypertension: Yes Dyslipidemia: No Peripheral Arterial Disease (PAD): No Myocardial Infarction ([place]): No Obesity: No Renal Disease: No Tobacco Use: Current/Recent(w/in 1 year) Prior Interventions PCI: No CABG: No Valve Surgery: No Report Signatures Finalized by Vicente Cortez MD on 11/19/2024 08:52 AM
[2024-11-09 09:42] LABS: Glucose Point of Care 187 mg/dL (70-110)
--- NOTE | 2024-11-09 10:06 | P.HPUD_ITS ---
Surgery/Procedure H&P Update DATE OF PROCEDURE: November 09, 2024 DATE H&P PERFORMED: 11/09/24 H&P UPDATE INFORMATION: I have reviewed H&P completed within last 30 days, I have examined patient prior to procedure and No changes to prior documentation PREOP DIAGNOSIS: NSTEMI PRIMARY INDICATION FOR PROCEDURE: NSTEMI PLANNED PROCEDURE: Left heart cath with possible PCI PATIENT REASSESSED PRIOR TO SEDATION, WITH NO CHANGE NOTED: Yes PHYSICAL EXAM: alert, oriented x 3, clear to auscultation bilaterally and r egular rate & rhythm AIRWAY EVAL/ANESTHESIA PLAN: normal airway, ASA III, Local Anesthesia, Risks, benefits & alternatives of sedation and/or procedure discussed and Patient ag rodolfo to continue as planned ADDITIONAL INFORMATION: Moderate sedation
--- NOTE | 2024-11-09 10:17 | P.CONIM_ITS ---
<Statement entered by Vicente Cortez M.D - 11/09/24 20:44> Patient was evaluated and cared for in conjunction with an advanced practice practitioner. I personally examined the patient and reviewed the chart and all pertinent data including imaging, telemetry, and laboratory results. I discussed the patient in detail with the advanced practice practitioner. Please see their note for complete consult note, results and agreed upon plan of care for the patient. Patient has presented with NSTEMI. Plan for coronary angiogram with possible PCI. Risks and benefits of the procedure discussed with the patient. Continue aspirin and plavix. On Lovenox. GENERAL: Patient is alert and oriented HEART: Regular S1 and S2 LUNGS: Clear to auscultation bilaterally EXTREMITIES: Lower extremities with no edema Providers/Reason For Consult 2 Consulting Physician/Specialty*: Dr Cortez, cardiology Reason for Consult*: NSTEMI, chest pain, hypertensive urgency Requesting Physician: Dr. Stacy Attending Physician: Daniel Lee MD Primary Care Provider: SHADIA Gale History of Present Illness History of Present Illness Maia Rhodes is a 59 year old female with past medical history of hypertension, type 2 diabetes. No prior cardiac history. She presented to the emergency room yesterday with significantly elevated blood pressure, headache, chest pain. Baseline troponin 16 -> 80 -> 214. EKG showed T wave inversions in leads aVL, V1 and V2. She was started on ACS protocol. She is not a smoker, does not drink alcohol. Home medications included Farxiga, lisinopril 5 mg daily, metformin 1000 mg twice a day, Januvia 50 mg daily. Hemoglobin A1c 9.3% Review of Systems 2 Const: Denies: fever(s), chills, change in weight, fatigue or diaphoresis Eyes: Denies: change in vision ENMT: Denies: epistaxis Card: Denies: chest pain, palpitations, irregular heart rhythm, edema, syncope, pre-syncope, dyspnea on exertion, orthopnea or leg pain with exertion Resp: Denies: dyspnea, productive cough or wheezing GI: Denies: nausea, vomiting, hematemesis, hematochezia or melena : Denies: hematuria Musc: Denies: extremity swelling Greg/Lymph: Denies: easy bruising or easy bleeding Medications/Allergies Home Medications Medication Instructions Recorded Confirmed Last Taken Type lisinopril 5 mg tablet 5 mg PO QPM 02/12/20 11/09/24 11/08/24 History sitagliptin phosphate 50 mg tablet 50 mg PO DAILY 02/12/20 11/09/24 11/08/24 History (Nishuvia) dapagliflozin propanediol 5 mg 5 mg PO QAM 11/05/20 11/09/24 11/08/24 History tablet (Farxiga) metformin 1,000 mg tablet 1,000 mg PO BID 09/27/24 11/09/24 11/08/24 History acetaminophen 500 mg tablet 500 mg PO Q6H PRN Pain 11/09/24 11/09/24 Unknown History cyclobenzaprine 10 mg tablet 10 mg PO TID PRN Spasms 11/09/24 11/09/24 Unknown History hydrocodone 5 mg-acetaminophen 325 1 tab PO TID PRN Severe Pain 11/09/24 11/09/24 Unknown History mg tablet (Scale Score 7-10) Allergies Allergy/AdvReac Type Severity Reaction Status Date / Time No Known Allergies Allergy Verified 11/08/24 20:25 PFSH Acute 2 PFSH: Medical History Type 2 diabetes mellitus Seasonal allergies HTN (hypertension) Contusion of knee, right Surgical History S/P cholecystectomy S/P appendectomy Family History Other CAD (coronary artery disease) Diabetes Social History Smoking and tobacco/nicotine status: tobacco/nicotine user, details unknown Second hand smoke exposure: No Alcohol intake: never Substance/Drug Use: never Current gender identity: Female Vitals/I&O/Wt Last Vital Signs Temp 98.2 F 11/08/24 20:21 Pulse 89 11/09/24 07:37 Resp 16 11/09/24 07:37 BP 123/80 11/09/24 07:37 Pulse Ox 98 11/09/24 07:37 O2 Del Method Room Air 11/09/24 07:45 Weight last 48 hrs Weight 170 lb 8 oz Weight 170 lb 8 oz Weight 175 lb Physical Exam 2 Const: COMMON NORMALS: no acute distress and patient oriented x3 GENERAL APPEARANCE: cooperative and comfortable ORIENTATION/CONSCIOUSNESS: Yes awake, Yes oriented to person, Yes oriented to place and Yes oriented to time Chest: COMMONS NORMALS: normal inspection of the chest and normal palpation of entire chest wall CHEST: Yes Symmetrical chest wall rise Resp: COMMON NORMALS: normal respiratory effort, No retractions, No use of accessory muscles and clear to auscultation bilaterally EFFORT & INSPECTION: Yes symmetric chest movement AUSCULTATION: clear to auscultation bilaterally Cardio: COMMON NORMALS: regular rate, regular rhythm, S1 normal heart sound present, S2 normal heart sound present, No gallops present (Cardio), No clicks present (Cardio), No murmurs present (Cardio) and No rub (Cardio) RATE: r egular rate RHYTHM: regular rhythm HEART SOUNDS: S1 normal heart sound present and S2 normal heart sound present PERIPHERAL PULSES: radial pulses present Extremity: COMMON NORMALS: no pedal edema Neuro: COMMON NORMALS: patient oriented x3 and moves all extremities S ENSORIUM/ORIENTATION: Yes oriented to person, Yes oriented to place and Yes oriented to time Data 11/09/24 03:00 11/09/24 03:00 A&P Assessment and plan (1) Non-ST elevation [place] (NSTEMI): (2) Hypertensive urgency: (3) Type 2 diabetes mellitus: Plan No active chest pain this morning, however due to NSTEMI and EKG changes she requires evaluation with coronary angiogram. This has been discussed with the patient by Dr. Cortez with risk and benefits, especially risk of bleeding, stroke, contrast-induced nephropathy. Patient is in agreement to proceed. She has not had any food or drink intake this morning. She has been loaded with Plavix 300 mg and aspirin 325 mg. Echocardiogram completed this morning, pending read. Consult Attestations 2 Medical Necessity Statement: Ischemic workup Coding Level of Care Code Acute Code for [facility] Diagnoses Non-ST elevation [place] (NSTEMI) I21.4 Hypertensive urgency I16.0 Type 2 diabetes mellitus E11.9
--- NOTE | 2024-11-09 10:54 | P.PCN_ITS ---
Procedure Note: Date of procedure: 11/09/24 Pre-procedure diagnosis: NSTEMI Post-procedure diagnosis: other (Critical mid LAD stenosis s/p PCI with 1 stent. Severe distal left circumflex artery stenosis s/p PCI with 1 stent) Procedure: Left heart cath: Left main artery is short and has no significant stenosis. Mid LAD has critical 95 to 99% stenosis status post successful revascularization with 1 stent. Distal left circumflex artery has severe stenosis status post successful revascularization. RCA is a small size nondominant vessel Dual antiplatelet therapy with aspirin and plavix for atleast 1 year High intensity statin therapy Estimated blood loss (mL): 10 Complications: None Condition: stable Coding Level of Care Code Acute Code for [facility]
--- NOTE | 2024-11-09 11:00 | SUR.PHASEI ---
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 Status post angiogram via the right radial approach. TR band in place. Site is hemostatic. Family at bedside. Call light within easy reach. Informed to call for needs. Vitals and assessments per flowsheet.
[2024-11-09] MEDS: carvedilol 3.125 mg Tablet PO ×2 (11:42→17:16)
[2024-11-09] MEDS: lisinopril 5 mg Tablet 10 MG PO (11:42)
[2024-11-09] MEDS: atorvastatin 40 mg Tablet 80 MG PO (11:42)
[2024-11-09] MEDS: aspirin 81 mg EC Tablet PO (11:44)
[2024-11-09] MEDS: insulin lispro 100 unit/1 mL SUBCUT ×3 (11:47→21:45)
[2024-11-09 11:49] LABS: Glucose Point of Care 187 mg/dL (70-110)
--- NOTE | 2024-11-09 15:06 | P.PN_ITS ---
Subjective 2 Subjective: Patient was seen this morning, no chest pain this morning, is anxious about her coronary angiography Vitals/I&O/Wt Last Vital Signs Temp 98.2 F 11/08/24 20:21 Pulse 84 11/09/24 14:45 Resp 17 11/09/24 14:45 BP 132/80 11/09/24 15:00 Pulse Ox 96 11/09/24 14:45 O2 Del Method Room Air 11/09/24 11:55 Weight last 48 hrs Weight 77.337 kg Weight 77.337 kg Weight 79.379 kg Physical Exam 2 Const: COMMON NORMALS: no acute distress and patient oriented x3 Resp: COMMON NORMALS: normal respiratory effort, No retractions, No use of accessory muscles and clear to auscultation bilaterally AUSCULTATION: clear to auscultation bilaterally Cardio: COMMON NORMALS: regular rate, regular rhythm, S1 normal heart sound present and S2 normal heart sound present RATE: regular rate RHYTHM: r egular rhythm HEART SOUNDS: S1 normal heart sound present and S2 normal heart sound present GI: COMMON NORMALS: Normal to inspection, nondistended, normoactive bowel sounds present and non-tender Extremity: COMMON NORMALS: no pedal edema Neuro: COMMON NORMALS: patient oriented x3 Psych: COMMON NORMALS: mental status grossly normal Data 11/09/24 03:00 11/09/24 03:00 A&P Assessment and plan (1) Non-ST elevation CT (NSTEMI): (2) Hypertensive urgency: (3) Type 2 diabetes mellitus: Plan Non-STEMI Continue aspirin, statin, Plavix, Coreg Plan on cardiac cath today Requested echo Will consult cardiology Hypertensive urgency: Coreg, lisinopril Type II diabetic: A1c 9.3, diabetic education, Chest pain radiating towards her back: No signs of radio-radial delay Follow-up with echo report Patient currently chest pain-free Consistent carb diet Full code Attestations 2 Medical Necessity Statement*: Patient requires hospitalization for NSTEMI Diagnoses Non-ST elevation CT (NSTEMI) I21.4 Hypertensive urgency I16.0 Type 2 diabetes mellitus E11.9
[2024-11-09 16:41] LABS: Glucose Point of Care 326 mg/dL (70-110)
[2024-11-09] MEDS: sodium chloride 0.9% 1,000 ML 100 ML IV (17:18)
[2024-11-09] MEDS: temazepam 15 mg Capsule PO (21:29)
[2024-11-09 21:39] LABS: Glucose Point of Care 189 mg/dL (70-110)
[2024-11-10 04:02] LABS: Basophils # 0.1 10^3/uL (0.0-0.1); Basophils % 0.6 %; Eosinophils # 0.6 10^3/uL (0.0-0.8); Hematocrit 40.2 % (36-47); Lymphocytes # 5.5 10^3/uL (0.8-4.8); Lymphocytes % 39.1 %; Mean Corpuscular HGB Conc 32.8 g/dL (30-55); Mean Corpuscular Hemoglobin 30.6 pg (27-33); Mean Corpuscular Volume 93.1 fl (85-98); Mean Platelet Volume 8.7 fL (7.4-10.4); Monocytes # 1.2 10^3/uL (0.2-0.9); Monocytes % 8.6 %; Neutrophils % 47.3 %; Nucleated Red Blood Cells % 0 %; Platelet Count 306 10^3/cmm (157-399); Red Blood Count 4.32 10^6/uL (3.85-5.65); Red Cell Distribution Width 12.2 % (12.1-15.1); White Blood Count 14.15 10^3/uL (3.29-11.43)
[2024-11-10 04:24] LABS: Anion Gap 14.9 (5-19); Blood Urea Nitrogen 9 mg/dL (8-23); Calcium 8.8 mg/dL (8.5-10.5); Carbon Dioxide 24 mmol/L (22-29); Chloride 101 mmol/L (98-107); Creatinine Clr Calc Pharmacy 148.6505; Glomerular Filtration Rate 162.3 mL/min (90-130); Glucose 163 mg/dL (65-115); Osmolality Calculated 284 mOsm/kg (285-295); Potassium 3.9 mmol/L (3.5-5.1); Sodium 136 mmol/L (136-145)
[2024-11-10] MEDS: enoxaparin 40 mg/0.4 mL Syringe SUBCUT (05:03)
[2024-11-10 06:42] LABS: Glucose Point of Care 182 mg/dL (70-110)
[2024-11-10 08:00] VITALS: BP 136/84; PULSE 92; RESP 20; TEMP 36.9; O2SAT 98
[2024-11-10 08:06] VITALS: PULSE 90; RESP 16; O2SAT 98
[2024-11-10] MEDS: insulin lispro 100 unit/1 mL SUBCUT ×2 (08:23→12:21)
[2024-11-10] MEDS: atorvastatin 40 mg Tablet 80 MG PO (08:27)
[2024-11-10] MEDS: clopidogrel 75 mg Tablet PO (08:27)
[2024-11-10] MEDS: aspirin 81 mg EC Tablet PO (08:27)
[2024-11-10] MEDS: carvedilol 6.25 mg Tablet PO (09:23)
[2024-11-10] MEDS: lisinopril 5 mg Tablet PO (09:23)
--- NOTE | 2024-11-10 09:33 | PC.CHAP ---
Pastoral Care Encounter/Spiritual Assessment Type of Contact [] Declined financial aid counselor visit [] Patient/Family/Request visit [] Outpatient visit [] Follow-up visit [] Physician referral [] Code/Alert [x] Routine visit [] Staff referral [] Actively dying [] Patient sleeping [] Family support [] [] Out of room [] Palliative care [] [] Receiving care in room [] Pre-surgical visit [] Trauma [] Long length of stay [] ICU visit [] Other: Relational/Emotional Strength [x] Patient feels connected with others/family/visitors/staff [] Distress [] Loneliness/isolation [] Abandonment Spirituality of Patient [x] Person of Leah [] Attends Nondenominational of their Leah [x] Believes in Prayer [] Reads Bible or Episcopalian materials [] There are Spiritual issues to be addressed Shirt Trimmer Interventions [x] Prayer [x] Active listening [] Non-anxious presence [x] Spiritual/emotional support [] Crisis/trauma care [] Spiritual counseling [] Bereavement support [] Provided bereavement packet [] Provided Bible/devotional materials [] Provided toy/stuffed animal, coloring book to patient or family member [] Provided Communion [] Anointing/[place] [] Salvation [x] Completed spiritual assessment [] Other: Impact on Illness or Injury [] Angry [] Fearful [] Anxious [] Often cries [] Exhaustion [] Unable to work [] Unable to attend taoism [] Unable to walk/stand [] Unable to read [] Unable to drive [] Unable to eat/drink [] Unable to sleep [] Unable to be with family [] Patient intubated [] Other: Summary Time spent with patient 5 min
--- NOTE | 2024-11-10 11:24 | P.PN_ITS ---
<Statement entered by Vicente Cortez M.D - 11/10/24 20:47> Patient was evaluated and cared for in conjunction with an advanced practice practitioner. I personally examined the patient and reviewed the chart and all pertinent data including imaging, telemetry, and laboratory results. I discussed the patient in detail with the advanced practice practitioner. Please see their note for complete progress note, results and agreed upon plan of care for the patient. Patient had PCI of mid LAD and distal Left circumflex artery. No chest pain. no access site abnormalities. Patient can be discharged home on dual antiplatelet agents. GENERAL: Patient is alert and oriented HEART: Regular S1 and S2 LUNGS: Clear to auscultation bilaterally EXTREMITIES: Lower extremities with no edema Subjective 2 Subjective: She has done well overnight. Status post stent to the mid LAD and circumflex. LVEF 60% by echocardiogram. She has not had any recurrence of chest pain overnight no complications with right radial cath site. Plan to discharge home today. Creatinine 0.4. Vitals/I&O/Wt Last Vital Signs Temp 98.5 F 11/10/24 08:00 Pulse 90 11/10/24 08:06 Resp 16 11/10/24 08:06 BP 136/84 11/10/24 08:00 Pulse Ox 98 11/10/24 08:06 O2 Del Method Room Air 11/10/24 08:06 11/09/24 11/10/24 11/10/24 22:59 06:59 14:59 Intake Total 1000 / 1000 120 / 120 Balance 1000 / 1000 120 / 120 Weight last 48 hrs Weight 170 lb 8 oz Weight 170 lb 8 oz Weight 170 lb 8 oz Weight 175 lb Physical Exam 2 Const: COMMON NORMALS: no acute distress and patient oriented x3 GENERAL APPEARANCE: cooperative and comfortable ORIENTATION/CONSCIOUSNESS: Yes awake, Yes oriented to person, Yes oriented to place and Yes oriented to time Chest: COMMONS NORMALS: normal inspection of the chest and normal palpation of entire chest wall CHEST: Yes Symmetrical chest wall rise Resp: COMMON NORMALS: normal respiratory effort, No retractions, No use of accessory muscles and clear to auscultation bilaterally EFFORT & INSPECTION: Yes symmetric chest movement AUSCULTATION: clear to auscultation bilaterally Cardio: COMMON NORMALS: regular rate, regular rhythm, S1 normal heart sound present, S2 normal heart sound present, No gallops present (Cardio), No clicks present (Cardio), No murmurs present (Cardio) and No rub (Cardio) RATE: r egular rate RHYTHM: regular rhythm HEART SOUNDS: S1 normal heart sound present and S2 normal heart sound present PERIPHERAL PULSES: radial pulses present Extremity: COMMON NORMALS: no pedal edema Neuro: COMMON NORMALS: patient oriented x3 and moves all extremities S ENSORIUM/ORIENTATION: Yes oriented to person, Yes oriented to place and Yes oriented to time Skin: WOUNDS: Yes surgical site (no hematoma palpable) Details: no odor Data 11/10/24 03:31 11/10/24 03:31 A&P Assessment and plan (1) Non-ST elevation [place] (NSTEMI): (2) Hypertensive urgency: (3) Coronary artery disease: Plan Continue aspirin, carvedilol 6.25mg BID, atorvastatin, Plavix, lisinopril 5mg daily. Requested she maintain a blood pressure log and bring it to her follow-up appointment in the cardiology clinic with cardiology [facility] CODER in 7 to 10 days. Lifting restrictions discussed, she may return to work on Thursday if no problems with her right radial cath site over the weekend. If she notices any pain or swelling at that site with normal activity, she should refrain from lifting anything over 5 pounds for 1 week. Requested meds to beds Attestations 2 Medical Necessity Statement*: Plan discharge home Coding Level of Care Code Acute Code for [facility] Diagnoses Non-ST elevation MD (NSTEMI) I21.4 Hypertensive urgency I16.0 Coronary artery disease I25.10
[2024-11-10 11:41] LABS: Adenovirus Not Detected (NOT DETECT); Chlamydia Pneumoniae Not Detected (NOT DETECT); Coronavirus 229E,HKU1,NL63,OC4 Not Detected (NOT DETECT); Human Metapneumovirus Not Detected (NOT DETECT); Human Rhinovirus/Enterovirus Not Detected (NOT DETECT); Influenza A Not Detected (NOT DETECT); Influenza A H1 Not Detected (NOT DETECT); Influenza A H1-2009 Not Detected (NOT DETECT); Influenza A H3 Not Detected (NOT DETECT); Influenza B Not Detected (NOT DETECT); Mycoplasma Pneumoniae Not Detected (NOT DETECT); Parainfluenza Virus Type 1 Not Detected (NOT DETECT); Parainfluenza Virus Type 2 Not Detected (NOT DETECT); Parainfluenza Virus Type 3 Not Detected (NOT DETECT); Parainfluenza Virus Type 4 Not Detected (NOT DETECT); Respiratory Syncytial Virus A Not Detected (NOT DETECT); Respiratory Syncytial Virus B Not Detected (NOT DETECT); SARS-COV-2 Not Detected (NOT DETECT)
[2024-11-10 11:44] LABS: Glucose Point of Care 276 mg/dL (70-110)
[2024-11-10 12:00] VITALS: BP 122/68; PULSE 99; RESP 20; TEMP 36.3; O2SAT 98
--- NOTE | 2024-11-10 12:01 | PM.DCS ---
Discharge Providers Date of Admission: 11/09/24 00:50 Date of Discharge: November 10, 2024 Attending Provider at Admission: Fahad Stacy MD Attending Provider at Discharge: Daniel Lee MD Primary Care Provider: SHADIA Gale Diagnoses at Discharge Discharge Diagnosis (1) Non-ST elevation AL (NSTEMI): Status: Acute (2) Hypertensive urgency: Status: Acute (3) Coronary artery disease: Status: Acute Reason for Visit Reason for Visit: Chest Pain\Chest Pressure Hospital Course Hospital Course This is a 59-year-old female with past medical history of type 2 diabetes mellitus, hypertension who presents [facility] for chest pain Patient was admitted to [facility] for NSTEMI, chest pain cardiology consulted, received aspirin, statin, Plavix, anticoagulant therapy underwent coronary angiogram as below Date of procedure: 11/09/24 Pre-procedure diagnosis: NSTEMI Post-procedure diagnosis: other (Critical mid LAD stenosis s/p PCI with 1 stent. Severe distal left circumflex artery stenosis s/p PCI with 1 stent) Procedure: Left heart cath: Left main artery is short and has no significant stenosis. Mid LAD has critical 95 to 99% stenosis status post successful revascularization with 1 stent. Distal left circumflex artery has severe stenosis status post successful revascularization. RCA is a small size nondominant vessel -Tolerated procedure well, no recurrent chest pain -Will be discharged on aspirin, statin, Plavix, beta-eduarda with a close follow-up with cardiology as outpatient -Patient was advised if she would have any recurrent chest pain to go to the emergency room For her hypertensive urgency discharged on lisinopril, Coreg For her type 2 diabetes mellitus, discharged on her home medications in addition to NovoLog sliding scale, follow-up with primary care provider as outpatient There was also concerns for a right ear acute otitis media on discharge, discharged on Augmentin Physical Exam Const: COMMON NORMALS: no acute distress and patient oriented x3 Resp: COMMON NORMALS: normal respiratory effort, No retractions, No use of accessory muscles and clear to auscultation bilaterally AUSCULTATION: clear to auscultation bilaterally Cardio: COMMON NORMALS: regular rate, regular rhythm, S1 normal heart sound present and S2 normal heart sound present RATE: regular rate RHYTHM: regular rhythm HEART SOUNDS: S1 normal heart sound present and S2 normal heart sound present GI: COMMON NORMALS: Normal to inspection, nondistended, normoactive bowel sounds present and non-tender Extremity: COMMON NORMALS: no pedal edema Neuro: COMMON NORMALS: patient oriented x3 Psych: COMMON NORMALS: mental status grossly normal Skin: NARRATIVE SKIN EXAM: Right ear, bulging, left tympanic membrane, erythema, displacement of, white Discharge Data Studies Completed and Pending Completed Studies During Hospitalization Category Date Time Status XR chest 1V portable [id number] Stat Exams 11/08/24 20:28 Completed CV. 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 Laboratory Results WBC 14.15 10^3/uL (3.29-11.43) H 11/10/24 03:31 RBC 4.32 10^6/uL (3.85-5.65) 11/10/24 03:31 Hgb 13.20 g/dL (11.27-16.99) 11/10/24 03:31 Hct 40.2 % (36-47) 11/10/24 03:31 MCV 93.1 fl (85-98) 11/10/24 03:31 MCH 30.6 pg (27-33) 11/10/24 03:31 MCHC 32.8 g/dL (30-55) D 11/10/24 03:31 RDW 12.2 % (12.1-15.1) 11/10/24 03:31 Plt Count 306 10^3/cmm (157-399) 11/10/24 03:31 MPV 8.7 fL (7.4-10.4) 11/10/24 03:31 Neut % (Auto) 47.3 % 11/10/24 03:31 Lymph % (Auto) 39.1 % 11/10/24 03:31 [place] % (Auto) 8.6 % 11/10/24 03:31 Eos % (Auto) 4.0 % 11/10/24 03:31 Baso % (Auto) 0.6 % 11/10/24 03:31 Neut # (Auto) 6.70 10^3/uL (1.8-7.7) 11/10/24 03:31 Lymph # (Auto) 5.5 10^3/uL (0.8-4.8) H 11/10/24 03:31 [place] # (Auto) 1.2 10^3/uL (0.2-0.9) H 11/10/24 03:31 Eos # (Auto) 0.6 10^3/uL (0.0-0.8) 11/10/24 03:31 Baso # (Auto) 0.1 10^3/uL (0.0-0.1) 11/10/24 03:31 Nucleated RBC % (auto) 0 % 11/10/24 03:31 Nucleated RBCs # 0.0 /100WBC 11/10/24 03:31 D-Dimer 0.66 ug/mLFEU (0-0.59) H 11/08/24 21:09 Sodium 136 mmol/L (136-145) 11/10/24 03:31 Potassium 3.9 mmol/L (3.5-5.1) 11/10/24 03:31 Chloride 101 mmol/L (98-107) 11/10/24 03:31 Carbon Dioxide 24 mmol/L (22-29) 11/10/24 03:31 Anion Gap 14.9 (5-19) 11/10/24 03:31 BUN 9 mg/dL (8-23) 11/10/24 03:31 Creatinine 0.4 mg/dL (0.5-0.9) L 11/10/24 03:31 GFR Calculation 162.3 mL/min (90-130) H 11/10/24 03:31 Glucose 163 mg/dL (65-115) H 11/10/24 03:31 POC Glucose 276 mg/dL (70-110) H 11/10/24 11:30 Estimat Average Glucose 220 11/09/24 00:00 Hemoglobin A1c 9.3 % (4.0-6.0) H 11/09/24 00:00 Calculated Osmolality 284 mOsm/kg (285-295) L 11/10/24 03:31 Calcium 8.8 mg/dL (8.5-10.5) 11/10/24 03:31 Magnesium 1.9 mg/dL (1.7-2.3) 11/09/24 03:00 Total Bilirubin 0.4 mg/dL (0.15-1.2) 11/08/24 21:09 AST 20 U/L (0-32) 11/08/24 21:09 ALT 22 U/L (0-33) 11/08/24 21:09 Alkaline Phosphatase 134 U/L (35-105) H 11/08/24 21:09 Troponin T Baseline 16 ng/L (0-10) H 11/08/24 21:09 Troponin T 120 Minute 80.51 ng/L (0-10) H 11/08/24 22:50 Delta Troponin T 64.51 ABS# (0-10) H* 11/08/24 22:50 Troponin T Hi Sens 6Hr 214.2 ng/L (0-10) H 11/09/24 03:00 Troponin T Hi Sens 6Hr Delta 198.2 ng/L (0-12) H* 11/09/24 03:00 Total Protein 7.1 g/dL (6.6-8.7) 11/08/24 21:09 Albumin 4.3 g/dL (3.5-5.2) 11/08/24 21:09 Globulin 2.8 g/dL (1.3-4.6) 11/08/24 21:09 Lipase 40 U/L (13-60) 11/08/24 21:09 Urine Color Yellow (Yellow) 11/08/24 23:00 Urine Appearance Clear (CLEAR) 11/08/24 23:00 Urine pH 5.5 (5-7) 11/08/24 23:00 Ur Specific Roe 1.031 (1.005-1.030) H 11/08/24 23:00 Urine Protein Negative (Negative) 11/08/24 23:00 Urine Glucose (UA) 3+ (Normal) H 11/08/24 23:00 Urine Ketones Negative (Negative) 11/08/24 23:00 Urine Blood Negative (Negative) 11/08/24 23:00 Urine Nitrate Negative (Negative) 11/08/24 23:00 Urine Bilirubin Negative (Negative) 11/08/24 23:00 Urine Urobilinogen 0.2 mg/dL (Negative) 11/08/24 23:00 Ur Leukocyte Esterase Negative (Negative) 11/08/24 23:00 Urine RBC 0-2 /hpf (0-2) 11/08/24 23:00 Urine WBC 0-5 /hpf (0-5) 11/08/24 23:00 Ur Squamous Epith Cells 0-5 /hpf (0-5) 11/08/24 23:00 Amorphous Sediment Not Reportable 11/08/24 23:00 Urine Bacteria None seen /hpf (NONE) 11/08/24 23:00 Hyaline Casts 0-4 /lpf H 11/08/24 23:00 Adenovirus (PCR) Not detected (NOT DETECT) 11/10/24 09:30 C. pneumoniae DNA (PCR) Not detected (NOT DETECT) 11/10/24 09:30 Coronavirus 229E (PCR) Not detected (NOT DETECT) 11/10/24 09:30 Human Metapneumovir PCR Not detected (NOT DETECT) 11/10/24 09:30 Influenza A (H1) PCR Not detected (NOT DETECT) 11/10/24 09:30 Influ A (H1/09) PCR Not detected (NOT DETECT) 11/10/24 09:30 Influenza A (H3) PCR Not detected (NOT DETECT) 11/10/24 09:30 Influenza Type A (PCR) Not detected (NOT DETECT) 11/10/24 09:30 Influenza Type B (PCR) Not detected (NOT DETECT) 11/10/24 09:30 M. pneumoniae (PCR) Not detected (NOT DETECT) 11/10/24 09:30 Parainfluenza 1 (PCR) Not detected (NOT DETECT) 11/10/24 09:30 Parainfluenza 2 (PCR) Not detected (NOT DETECT) 11/10/24 09:30 Parainfluenza 3 (PCR) Not detected (NOT DETECT) 11/10/24 09:30 Parainfluenza 4 (PCR) Not detected (NOT DETECT) 11/10/24 09:30 RSV Type A (PCR) Not detected (NOT DETECT) 11/10/24 09:30 RSV Type B (PCR) Not detected (NOT DETECT) 11/10/24 09:30 Entero/Rhino (PCR) Not detected (NOT DETECT) 11/10/24 09:30 SARS-CoV-2 (PCR) Not detected (NOT DETECT) 11/10/24 09:30 Vitals Last Vital Signs Temp 98.5 F 11/10/24 08:00 Pulse 90 11/10/24 08:06 Resp 16 11/10/24 08:06 BP 136/84 11/10/24 08:00 Pulse Ox 98 11/10/24 08:06 O2 Del Method Room Air 11/10/24 08:06 Discharge Plan Discharge Patient Disposition: Home Condition: Stable Prescriptions: New (DME) GLUCOMETER See Rx Instructions .Route .MEDSUPPLY Qty: 1 0RF Rx Instructions: Glucometer testing KIT (DME) lancets Misc See Rx Instructions .Route Qty: 200 0RF Rx Instructions: Check blood sugars, 3 times daily, after meals (DME) STRIPS See Rx Instructions .Route .MEDSUPPLY Qty: 200 0RF Rx Instructions: Strips, check blood sugars 3 times daily AFTER MEALS aspirin 81 mg Tablet,Delayed Release (Dr/Ec) 81 mg PO DAILY 30 Days Qty: 30 0RF atorvastatin 40 mg Tablet 80 mg PO DAILY 30 Days Qty: 30 0RF clopidogrel 75 mg Tablet 75 mg PO DAILY 30 Days Qty: 30 0RF nitroglycerin 0.4 mg Tablet, Sublingual 0.4 mg sublingual Q5M PRN (Reason: Chest Pain) 30 Days Qty: 30 0RF insulin aspart U-100 [Novolog FlexPen U-100 Insulin] 100 unit/mL (3 mL) insulin pen See Rx Instructions .ROUTE .COMPLEX Qty: 15 0RF Rx Instructions: Inject, subcuT, 3 times daily, after meals, based on sliding scale provided carvedilol [Coreg] 6.25 mg tablet 6.25 mg PO BID 30 Days Qty: 60 0RF Rx Instructions: must administer with a meal/food amoxicillin-pot clavulanate 875-125 mg tablet 1 tab PO BID 5 Days Qty: 10 0RF Continued Januvia 50 mg tablet 50 mg PO DAILY lisinopril 5 mg tablet 5 mg PO QPM Farxiga 5 mg tablet 5 mg PO QAM metformin 1,000 mg tablet 1,000 mg PO BID cyclobenzaprine 10 mg tablet 10 mg PO TID PRN (Reason: Spasms) hydrocodone-acetaminophen 5-325 mg tablet 1 tab PO TID PRN (Reason: Severe Pain (Scale Score 7-10)) acetaminophen 500 mg Tablet 500 mg PO Q6H PRN (Reason: Pain) Discharge Orders: Discharge Order (Routine); Ordered 11/10/24 Ordered By: Daniel Lee Referrals: Vicente Cortez M.D [Physician] - 1-3 days Bernarda Temple FNP [Primary Care Provider] - Discharge Diet: Cardiac Discharge Activity: Resume usual activity Patient Instructions: Opioid Safety Activity Restrictions/Additional Instructions: - If you have any recurrent chest pain please go to emergency room -Please monitor your blood sugars closely -Monitor your blood sugars 3 times daily as after meals -Please record your blood sugars, and a blood sugar log -For your NovoLog -Please inject blood sugar after meals based on sliding scale provided -Do not inject insulin if you do not eat as hypoglycemia kills -This is a NovoLog sliding scale -Insulin sliding ?fingerstick? Insulin ?141-180?0 units/sq 181-220?2 units/sq ?221-260?4 units/sq ?261-300 6 units/sq ?301-350?8 units/sq ?351-400 10 units/sq ?401-450?12 units/sq >450? 14units/sq -If your blood sugar is greater than 500 go to the emergency room -If your blood sugar is less than 60 or at anytime you feel lightheaded or dizzy or diaphoretic or have chest palpitations check your blood sugar, and eat a hard candy or drink orange juice and go immediately to the emergency room -Remember hypoglycemia kills, so if his blood sugar is less than 60 we have to increase it by taking in a sugary meal such as a hard candy or orange juice and go to the emergency room -If you have any questions please call us where here to help -Please continue aspirin, statin, Plavix as prescribed for your heart stent -Please do not stop taking these medications as they are keeping your heart stent open Discharge Attestations Time Spent in Discharge Care*: greater than 30 min Quality Metrics Clinical Quality Measures [ Acute Myocardial Infaction { Clinical Trial Participant: No; Contraindication to aspirin: None; Aspirin prescribed; Contraindication to statin: None; Statin prescribed; Contraindication to PCI: None; PCI performed;}] Coding Level of Care Code 43291 Total time (in minutes) for Discharge: 45 Diagnoses Non-ST elevation AL (NSTEMI) I21.4 Hypertensive urgency I16.0 Coronary artery disease I25.10
[2024-11-10 14:34] VITALS: BP 123/69; PULSE 100; O2SAT 98
--- OUTSIDE RECORDS SUMMARY | 2024-11-15 05:40 | XMS_ITS | Encounter Summary ---
Author Organization [place] [facility] Address [address] [place] [address] Care Team Providers Care Water Control Supervisor Name Role Phone Unavailable Primary Care Provider Unavailabl e Encounter Details Date Type Department Care Team (Late st Contact Info) Description 03/17/2006 Outpatient Historical [facility] FY06 Donald Munoz MD [address] [facility] [address] [place] [address] Social History Tobacco Use Types Packs/Day Years Used Date Smoking Tobacco: Never Assessed Comments Unknown Sex and Gender Information Value Date Recorded Sex Assigned at Not on file 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
--- OUTSIDE RECORDS SUMMARY | 2024-11-15 05:40 | XMS_ITS | Encounter Summary ---
Author Organization [place] [facility] Address [address] [place] [address] Care Team Providers Care Cloth Shrinking Tester Name Role Phone Unavailable Primary Care Provider Unavailabl e Encounter Details Date Type Department Care Team (Latest Contact Info) Description 03/23/1998 Outpatient Historical [facility] Ramsey Yanes MD [address] [place] [address] Gynecologic examination (Primary Dx); Excessive menstruation Social History Tobacco Use Types Packs/Day Years Used Date Smoking Tobacco: Never Assessed Comments Unknown Sex and Gender Information Value Date Recorded Sex Assigned at Not on file 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
--- OUTSIDE RECORDS SUMMARY | 2024-11-15 05:40 | XMS_ITS | Encounter Summary ---
Author Organization [facility] Address [address] [place] [address] Care Team Providers Care Folder Seamer Automatic Name Role Phone Unavailable Primary Care Provider Unavailabl e Encounter Details Date Type Department Care Team (Latest Contact Info) Description 11/05/2004 Outpatient Historical [facility] [address] [place] [address] [address] [place] [address] Donald Munoz MD [address] [facility] [address] [place] [address] Routine medical exam (Primary Dx); ROUTINE MANDOLIN REPAIR PERSON EXAMINATION Social History Tobacco Use Types Packs/Day Years Used Date Smoking Tobacco: Never Assessed Comments Unknown Sex and Gender Information Value Date Recorded Sex Assigned at Not on file 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
--- OUTSIDE RECORDS SUMMARY | 2024-11-15 05:40 | XMS_ITS | Encounter Summary ---
Author Organization [facility] Address [address] [place] [address] Care Team Providers Care Card Fixer Name Role Phone Unavailable Primary Care Provider Unavailabl e Encounter Details Date Type Department Care Team (Latest Contact Info) Description 03/17/2006 Outpatient Historical [facility] [address] [place] [address] Dnoald Munoz MD [address] [facility] [address] [place] [address] Routine Medical Exam (Primary Dx); Routine Gynecological Examination Social History Tobacco Use Types Packs/Day Years Used Date Smoking Tobacco: Never Assessed Comments Unknown Sex and Gender Information Value Date Recorded Sex Assigned at Not on file 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
--- OUTSIDE RECORDS SUMMARY | 2024-11-15 05:40 | XMS_ITS | Clinical Summary ---
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 Gender Identity Not on file Sexual Orientation Not on file Plan of Treatment Health Maintenance Due Date Last Done Comments DTAP/TDAP/TD VACCINES (1 - Tdap) 1982 BREAST CANCER SCREENING 2003 COLORECTAL SCREENING 2008 Colorectal Cancer Screening 2008 FIT-DNA Q 3 years 2008 FIT/FOBT Q 1 year 2008 Flex Sig/CT Colonography Q 5 years 2008 CERVICAL CANCER SCREENING 03/17/20092005, 11/05/2004, 03/23/1998 ZOSTER VACCINE (1 of 2) 2013 INFLUENZA VACCINE (#1) 2024 RSV VACCINE (60+ or ) (1 - 1-dose 75+ series) 2038 PNEUMOCOCCAL VACCINE 0-64 YEARS Aged Out No longer eligible b ased on patient's age to complete this topic
--- OUTSIDE RECORDS SUMMARY | 2024-11-15 05:40 | XMS_ITS | Encounter Summary ---
Author Organization [facility] Address [address] [place] [address] Care Team Providers Care Hooker Machine Tender Name Role Phone Unavailable Primary Care Provider Unavailabl e Encounter Details Date Type Department Care Team (Late st Contact Info) Description 07/31/2003 Outpatient Historical [facility] Donald Munoz MD [address] [address] Social History Tobacco Use Types Packs/Day Years Used Date Smoking Tobacco: Never Assessed Comments Unknown Sex and Gender Information Value Date Recorded Sex Assigned at Not on file 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
--- OUTSIDE RECORDS SUMMARY | 2024-11-15 05:40 | XMS_ITS | Encounter Summary ---
Author Organization [facility] Address [address] [place] [address] Care Team Providers Care Tool Machinist Name Role Phone Unavailable Primary Care Provider Unavailabl e Encounter Details Date Type Department Care Team (Late st Contact Info) Description 11/05/2004 Outpatient Historical [facility] FY06 Donald Munoz MD [address] [facility] [address] [place] [address] Social History Tobacco Use Types Packs/Day Years Used Date Smoking Tobacco: Never Assessed Comments Unknown Sex and Gender Information Value Date Recorded Sex Assigned at Not on file 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
== END 2024-11-10 15:22 | disposition home or self-care (01) | DRG 322 ==
LOC: ER 11-09 00:35 → ER IP 11-09 05:47 → CSU 11-09 06:11
PROVIDERS: Emergency Medicine; Internal Medicine; Nurse Practitioner Family; Admitting Provider Internal Medicine; Emergency Provider Emergency Medicine; PCP Nurse Practitioner Family; Visit Provider Family Medicine
PROC: 027135Z Dilation of Coronary Artery, Two Arteries with Two Drug-eluting Intraluminal Devices, Percutaneous Approach (ICD-10-PCS; principal; 2024-11-09 09:30)
PROC: 027135Z Dilation of Coronary Artery, Two Arteries with Two Drug-eluting Intraluminal Devices, Percutaneous Approach (ICD-10-PCS; 2024-11-09 09:30)
DX: I21.4 Non-ST elevation (NSTEMI) myocardial infarction (principal); I16.0 Hypertensive urgency; I10 Essential (primary) hypertension; I25.10 Atherosclerotic heart disease of native coronary artery without angina pectoris; E11.9 Type 2 diabetes mellitus without complications; H66.91 Otitis media, unspecified, right ear; Z79.84 Long term (current) use of oral hypoglycemic drugs
CPT/HCPCS: 36415; 36416; 71045; 80048; 80053; 81001; 82962; 83036; 83690; 83735; 84484; 85025; 85347; 85378; 87486; 87581; 87633; 93005; 93306; 93454; 96372; 96374; 96375; 96376; 99152; 99153; 99285; A9270; C1725; C1769; C1874; C1887; C1894; C9600; C9601; J1644; J1650; J1815; J2060; J2250; J3010; J3490; J7030; Q9967

== ENCOUNTER → 2024-11-17 16:50 | Outpatient (BNVA) | payer OTHER, SELFPAY | PROVIDERS: PCP Nurse Practitioner Family; Visit Provider Nurse Practitioner Family | DX: I25.10 Atherosclerotic heart disease of native coronary artery without angina pectoris (principal) | CPT/HCPCS: 36415; 80048 ==

== ENCOUNTER 2025-01-20 14:03 | Outpatient (CLI) | payer OTHER, SELFPAY ==
--- NOTE | 2025-01-20 14:11 | MM_ITS ---
WS: [id number] BILATERAL SCREENING DIGITAL TOMOSYNTHESIS MAMMOGRAM WITH CAD HISTORY: SCREENING COMPARISON: 04/23/2023, 04/09/2022 Bilateral CC and MLO views with tomosynthesis and synthetic mammography submitted. Computer aided detection analyzed. Breast composition: There are scattered areas of fibroglandular density. No suspicious masses, microcalcifications or architectural distortion. Breast arterial calcifications and benign bilateral calcifications. No areas of distortion. MM/MM scr tomosynthesis [id number] IMPRESSION: BI-RADS: 2 - Benign. FOLLOW UP: 1 Year Follow-up
== END 2025-01-20 14:04 | disposition home or self-care (01) ==
LOC: RAD 14:05
PROVIDERS: PCP Nurse Practitioner Family; Visit Provider Nurse Practitioner Family
DX: Z12.31 Encounter for screening mammogram for malignant neoplasm of breast (principal); R92.323 Mammographic fibroglandular density, bilateral breasts; R92.1 Mammographic calcification found on diagnostic imaging of breast
CPT/HCPCS: 77063; 77067

== ENCOUNTER → 2025-09-22 14:52 | Outpatient (BNVA) | payer OTHER, SELFPAY | PROVIDERS: PCP Family Medicine; Visit Provider Family Medicine | DX: E11.9 Type 2 diabetes mellitus without complications (principal) | CPT/HCPCS: 82043 ==